=== PATIENT | female | born 1995 | race Caucasian/White ===

== ENCOUNTER 2019-11-27 14:11 | Emergency (ER) | payer OTHER ==
[2019-11-27 14:36] VITALS: O2SAT 98
[2019-11-27] MEDS ORDERED: SULFA/TRIMETH 800/160 (DS) TAB 1 EA TAB PO ONE (14:49)
[2019-11-27] MEDS ORDERED: TETANUS,DIPHTHERIA,PERTUSSIS 1 EA SYG IM ONE (14:49)
--- NOTE | 2019-11-27 14:52 | ED.PDOC ---
History of Present Illness - General Chief Complaint: Laceration Stated Complaint: laceration left medial anterior thigh Time Seen by Provider: 11/27/19 14:48 Source: patient Exam Limitations: no limitations - History of Present Illness Initial Comments: The patient is a 24-year-old female presented emergency room secondary toA laceration to her left thigh that she sustained accidentally due to a pipe sticking out of the ground. Laceration is into the subcutaneous tissue. It is in a V shape approximately 1 inch on each arm. The patient cleaned with hydrogen peroxide prior to coming up. She is neurovascular intact distally. Timing/Duration: 1/2 hour Severity: mild Improving Factors: nothing Worsening Factors: nothing Associated Symptoms: denies symptoms Allergies/Adverse Reactions: Allergies NO KNOWN ALLERGY Allergy (Verified 11/27/19 14:27) Home Medications: Ambulatory Orders Sulfa/Trimeth 800/160 (Ds) Tab [Bactrim DS Tab] 1 ea PO DAILY #5 tab 11/27/19 Review of Systems - Review of Systems Constitutional: States: no symptoms reported EENTM: States: no symptoms reported Respiratory: States: no symptoms reported Cardiology: States: no symptoms reported Gastrointestinal/Abdominal: States: no symptoms reported Genitourinary: States: no symptoms reported Musculoskeletal: States: no symptoms reported Skin: States: see HPI Neurological: States: no symptoms reported Endocrine: States: no symptoms reported All other Systems: No Change from Baseline Past Medical History (General) - Patient Medical History Hx Seizures: No Hx Stroke: No Hx Dementia: No Hx Asthma: No Hx of COPD: No Hx Cardiac Disorders: No Hx Congestive Heart Failure: No Hx Pacemaker: No Hx Hypertension: No Hx Thyroid Disease: No Hx Diabetes: No Hx Gastroesophageal Reflux: Yes Hx Renal Disease: No Hx Cancer: No Hx of HIV: No Hx Hepatitis C: No Hx MRSA: No - Vaccination History Hx Tetanus, Diphtheria Vaccination: No Hx Influenza Vaccination: Yes - Social History Hx Tobacco Use: Yes Hx Alcohol Use: No Family Medical History - Family History Mother Family History: Unknown Living Status: Still Living Physical Exam - Physical Exam General Appearance: Alert, Comfortable, No apparent distress Eye Exam: bilateral normal Ears, Nose, Throat: hearing grossly normal Neck: full range of motion Respiratory: no respiratory distress, no accessory muscle use Cardiovascular/Chest: normal peripheral pulses, no edema Peripheral Pulses: dorsalis pedis,right: 2+, dorsalis pedis,left: 2+ Rectal Exam: deferred Extremity: normal range of motion, no pedal edema, no calf tenderness, normal capillary refill Neurologic: asl interpreter II-XII nml as tested, alert, normal mood/affect, oriented x 3 Skin Exam: normal color - Laceration as above Comments: Vital Signs - 24 hr 11/27/19 14:28 Temperature 97.2 F L Pulse Rate [ 94 H Left Radial] Respiratory 20 Rate Blood Pressure 124/75 [Right Arm] O2 Sat by Pulse 98 Oximetry Progress - Progress Progress: 11/27/19 14:51 The patient is a 24-year-old female presented emergency room secondary to sustaining a laceration to her left lateral thigh. After risk and benefits of repair were explained patient agreed to proceed. Wound is cleaned with 250 cc of saline and then with hydrogen peroxide. Xylocaine 1% without epinephrine was used x5 cc for local anesthetic. 6 simple sutures of 3-0 Ethilon were used for reapproximation. Patient tolerated this well. Sutures need to come out in 8 to 10 days. Estimated blood loss is 10 cc. The patient was given a dose of Bactrim for prophylactic purposes will be continued on this daily for 5 days. She received a tetanus shot as well. Monitor for any evidence of infection. ER warnings were given. [email or web address] [email or web address] [id number] Departure - Departure Clinical Impression: Accidental laceration Disposition: Discharge to Home or Self Care Condition: Fair Departure Forms: ED Discharge - Pt. Copy, Patient Portal Self Enrollment Diet: regular diet Activity: increase activity as tolerated Prescriptions: Sulfa/Trimeth 800/160 (Ds) Tab [Bactrim DS Tab] 1 ea PO DAILY #5 tab Home Medications: Ambulatory Orders Sulfa/Trimeth 800/160 (Ds) Tab [Bactrim DS Tab] 1 ea PO DAILY #5 tab 11/27/19 Additional Instructions: The patient is a 24-year-old female presented emergency room secondary to sustaining a laceration to her left lateral thigh. After risk and benefits of repair were explained patient agreed to proceed. Wound is cleaned with 250 cc of saline and then with hydrogen peroxide. Xylocaine 1% without epinephrine was used x5 cc for local anesthetic. 6 simple sutures of 3-0 Ethilon were used for reapproximation. Patient tolerated this well. Sutures need to come out in 8 to 10 days. Estimated blood loss is 10 cc. The patient was given a dose of Bactrim for prophylactic purposes will be continued on this daily for 5 days. She received a tetanus shot as well. Monitor for any evidence of infection. ER warnings were given.
[2019-11-27] MEDS ORDERED: NEOMYCIN-BACITRACIN-POLYMYXIN 0.9 GM UD TOP ONE (14:56)
[2019-11-27 15:33] VITALS: BP 123/76; TEMP 97.7
== END 2019-11-27 15:00 | disposition home or self-care (01) ==
LOC: ER 14:11
DX: S71.112A Laceration without foreign body, left thigh, initial encounter (principal); K21.9 Gastro-esophageal reflux disease without esophagitis; Z87.891 Personal history of nicotine dependence; W45.8XXA Other foreign body or object entering through skin, initial encounter; Y92.9 Unspecified place or not applicable